=== PATIENT | male | born 1985 | race African-American/Black ===

== ENCOUNTER 2024-06-05 21:42 | Emergency (ER) | payer SELFPAY ==
[2024-06-05 21:42] VITALS: BP 161/99; PULSE 92; RESP 16; TEMP 36.1; O2SAT 99; BMI 27.6
--- NOTE | 2024-06-05 23:04 | ED.RN ---
Pt states he is tired of waiting and will come back later.
== END 2024-06-05 23:04 | disposition left against medical advice (07) ==
LOC: ED 23:18
DX: Z00.00 Encounter for general adult medical examination without abnormal findings (principal)

== ENCOUNTER 2024-06-08 13:23 | Emergency (ER) | payer MEDICAID, SELFPAY ==
[2024-06-08 13:24] VITALS: BP 147/77; PULSE 88; RESP 16; TEMP 36.4; O2SAT 100; BMI 23.4
--- NOTE | 2024-06-08 13:53 | EX.ED.GUMALE ---
HPI History of Present Illness Chief Complaint: Complaint Informant: patient Narrative Narrative: Patient presents to ED wanting STD treatment. He had a new sexual partner 4 weeks ago no protection use. He states last time he had intercourse was 17 months prior to that. Reported 3 weeks ago he felt some sort of urine sensation however would not give me more information. He denies dysuria currently no discharge. No ulcerations. He had gonorrhea at the age of 12. Reporting he gets checked every 6 months. After evaluation and further discussion with the patient, he was treated at another outside facility a month ago he states he could not move for day. He states 1 was a shot and pills that were given. He was not given a prescription. PFSH PFSH Medical History no medical history Home Medications ?Medication ?Instructions ?Recorded ?Last Taken ?Type doxycycline monohydrate 100 mg 100 mg PO BID #14 CAPSULES 06/08/24 Unknown Rx capsule Allergy/AdvReac Type Severity Reaction Status Date / Time No Known Allergies Allergy Verified 06/05/24 21:42 Family History no significant family his Surgical History no surgical history Social History Smoking Status: Never smoker ROS ROS ED Constitutional Constitutional ED: Denies chills, fever(s) or sweats Eyes Eyes: Denies change in vision ENT ENT ED: Denies dysphagia or sore throat Cardiovascular Cardiovascular: Denies chest pain, leg edema, palpitations or racing heartbeat Respiratory/Chest Respiratory/Chest: Denies cough, dyspnea or dyspnea on exertion Gastrointestinal Gastrointestinal: Denies abdominal pain, diarrhea, nausea or vomiting Genitourinary Genitourinary ED: Reports other Details: STD concerns ; Denies dysuria, hematuria or urinary frequency Musculoskeletal Musculoskeletal: Denies back pain, extremity pain or neck pain Integumentary Denies rash or wounds Neurologic Neurologic: Denies headache(s), paresthesias or weakness EXAM Physical Exam Const Vital Signs: 06/08/24 13:24 Temperature 97.6 F L Temperature Source Temporal Pulse Rate 88 Respiratory Rate 16 Blood Pressure 147/77 H Blood Pressure Mean 100 Pulse Ox 100 Oxygen Delivery Method Room Air Positive well nourished and well developed General Appearance ED: well developed and NAD HEENT Reports moist mucous membranes normocephalic and atraumatic Eyes EOMs intact bilaterally and conjunctivae normal General Eye ED: Yes normal appearance of both eyes Neck no lymphadenopathy and supple General: Negative for tenderness Chest Wall Chest: Negative for tenderness Resp normal respiratory effort and normal air movement Effort and Inspection: symmetric chest movement; Negative for respiratory distress Cardio regular rate, regular rhythm and no murmurs Peripheral Pulses: pulses 2+ throughout GI normal to inspection, nondistended, normoactive bowel sounds and non-tender Palpation: Negative for guarding or rebound tenderness present Narrative: No penile discharge no ulcerations noted. Back/Spine no CVA tenderness and no thoracic nor lumbar tenderness Extremity normal to inspection General Extremety ED: Negative for edema or tenderness General Extremity: Negative for edema Neuro oriented x3 and no sensory deficits noted Sensorium / Orientation: awake and alert Skin no rashes or lesions noted and no wounds MDM MDM MDM Narrative Medical decision making narrative: Interventions / MDM: Differential diagnosis: Urethritis, STD concerns Diagnosis considered but do not suspect: N/A My EKG interpretation: N/A Imaging independently reviewed and interpreted by myself: N/A External documents reviewed: N/A Test considered but not ordered:N/A ED course: Patient vague in his urine symptoms 3 weeks ago. He had intercourse with a new partner 4 weeks ago. Initially was not agreeable for urine testing then he agreed. Urine sent for chlamydia and gonorrhea. He brought up coverage for syphilis, there is no findings for this however discussed blood testing to send out however he declines this. He wanted treatment therefore started on Rocephin 500 mg IM, doxycycline 100 mg, Flagyl coverage of 2 g for trichomonas coverage. I discussed with him recommend treatment of doxycycline 100 mg twice a day for 7 days. He states a month ago he is not given prescription. I discussed the new recommendation guidelines with patient over the last few years currently. Additional prescription was sent to his pharmacy. Outpatient follow-up given. All his questions were answered. Of note patient was hesitant with nursing giving injections and medications. Became more agitated security was called stable, and down. He is in agreement with treatment. However he did not give urine sample for testing. He is given follow-up as an outpatient. Re-evaluation: stable Disposition discussed with patient/family/significant other: Patient Case discussed with consulting clinician: N/A This note was generated with [employer] Document Management softwareation software. It may contain incorrect words, spelling, and punctuation that were not noted in checking the note before signing. Discharge Plan Triage Chief Complaint: Complaint ED Provider: Kelton Handley Dx/Rx/DC Orders Clinical Impression: Urethritis, Concern about STD in male without diagnosis Instructions: Urethritis in Men Prescriptions: New doxycycline monohydrate 100 mg capsule 100 mg PO BID Qty: 14 0RF Primary Care Provider: Care Physician,No Primary Referrals: Megan Avila [Non-Staff] - 1-2 Weeks NOT,DEFINED [Non-Staff] - Activity Restrictions/Additional Instructions: You were treated with Rocephin 500 anti-M in the emergency permit. Flagyl 2 g. Started on doxycycline. Recommended for chlamydia coverage doxycycline for total 7 days. Follow-up with your doctors. Avoid alcohol for the next week. Print Language: Wolof Disposition Disposition: Home, Self Care Discharge Date/Time: 06/08/24 14:47
--- NOTE | 2024-06-08 14:23 | ED.RN ---
THIS RN INTO ROOM WITH RADHA RN. PT RECORDING IN THE ROOM. PT RELUCTANT TO TAKE SHOT. PT AWARE SHOT IS MEANT TO COVER ALL ASPECTS OF STDS. PT AGREES. PT THEN BEGINS TO LAUGH HYSTERICALLY AND WANDER AROUND ROOM. PT NOT ABLE TO LAY DOWN. ASSURED PT THAT IT WOULD BE QUICK. PT AGREES. PT THEN PULLS DOWN SHOTS EXPOSING PENIS TO RADHA RN PT PULLS PANTS BACK UP, BEGINS PACING AROUND ROOM STATING I'M NOT FUCKING GOING DOWN FOR 2 YEARS. THIS RN UNABLE TO UNDERSTAND PT. PT THEN BEGINS RECORDING. THIS RN OUT OF ROOM. SECURITY AT BEDSIDE. ASPHALT SPREADER OPERATOR THEN IN TO OFFER SHOT LONG PT DOES NOT RECORD. PT ANGRY WITH THIS RN REQUESTING THIS RN NAME. PT PROVIDED WITH NAME BY THIS RN. THIS RN APPROACHED PT AND TOLD HIM I HAVE NO PROBLEM GIVING YOU MY NAME, I'M NOT TRYING TO MAKE THINGS WORSE. PT GIVEN NAME. ASPHALT SPREADER OPERATOR IN WITH PT WITH SECURITY
[2024-06-08] MEDS: Ceftriaxone 500 MG Vial IM (14:26)
[2024-06-08] MEDS: metroNIDAZOLE 500 MG Tablet 2000 MG PO (14:26)
[2024-06-08] MEDS: Doxycycline 100 MG CAPSULE PO (14:26)
--- NOTE | 2024-06-08 14:46 | ED.RN ---
PT REFUSES TO GIVE URINE SAMPLE. HE STATES HE WOULD LIKE TO FORGO THE TESTING AND JUST COMPLETE THE TREATMENT. PT VERBALIZES UNDERSTANDING OF D/C INSTRUCTIONS AND LEAVES THE DEPT WITHOUT ANY FURTHER DISTURBANCES.
--- NOTE | 2024-06-08 14:59 | ED.RN ---
THIS RN ENTERS ROOM AND IS ABOUT TO GIVE PT MEDICATION. THIS RN FEELS UNCOMFORTABLE BECAUSE PT RAMBLING & NOT MAKING SENSE, PT ALSO VERY CLOSE TO THIS RN AND TOLD TO SIT ON THE BED. THIS RN THEN GETS ANOTHER RN (CHRISTOPHER) TO COME TO BEDSIDE TO GIVE PT MEDICATION WITH THIS RN. AT THIS TIME, PT BEGINS TO LAUGH INAPPROPRIATELY AND GET AGITATED. PT PULLS PANTS DOWN AND ATTEMPTS TO SHOW HIS GENITALIA TO THIS RN. PT TOLD HIS BEHAVIOR IS INAPPROPRIATE AND IS NOT TOLERATED. PT BEGINS TO GET MORE AGITATED. SECURITY IS MADE AWARE AND IS AT BEDSIDE AT THIS POINT.
== END 2024-06-08 14:47 | disposition home or self-care (01) ==
LOC: ED 13:55
PROVIDERS: Emergency Provider Emergency Medicine; Visit Provider Emergency Medicine
DX: N34.2 Other urethritis (principal); Z71.1 Person with feared health complaint in whom no diagnosis is made
CPT/HCPCS: 96372; 99283

== ENCOUNTER 2024-06-20 15:19 | Emergency (ER) | payer MEDICAID, SELFPAY ==
[2024-06-20 15:22] VITALS: BP 147/79; PULSE 83; RESP 18; TEMP 36; O2SAT 99; BMI 24.4
--- NOTE | 2024-06-20 15:23 | ED.RN ---
pt states he has a high tolerance for pain and therefore cannot use pain scale.
--- NOTE | 2024-06-20 16:34 | NURSING ---
NO OLD EKGS
--- NOTE | 2024-06-20 16:42 | ED.RN ---
This RN walked in to the patient room to assess him. This RN asked if he could remove his shirt so I can place a heart monitor on him. The patient stated They aren't going to figure out what is wrong with my chest or my eyes today baby, I am going to go. This RN stated We want to figure out what is wrong with you. I don't want you to leave without being seen.. you are in a room now. Patient shook his head and then left the department.
== END 2024-06-20 16:45 | disposition left against medical advice (07) ==
LOC: ED 16:46
DX: R07.89 Other chest pain (principal)

== ENCOUNTER 2024-06-22 14:09 | Emergency (ER) | payer MEDICAID, SELFPAY ==
[2024-06-22 14:11] VITALS: BP 154/85; PULSE 75; RESP 16; TEMP 35.9; O2SAT 97; BMI 24.6
--- NOTE | 2024-06-22 14:28 | ED.RN ---
THIS RN ENTERS THE ROOM AND PT IS AGITATED WITH DIRECTIONS OF TAKING A SEAT AND GETTING THE GOWN ON. HE HAS C/O CHEST PAIN WELL MANY OTHER THINGS. HE SAID LAST TIME HE WAS HERE NO TESTING WAS DONE SO THEY CAN'T TREAT WHAT THEY DON'T KNOW, BABY. AFTER PT RAMBLED DIFFERENT STATEMENTS WHILE STANDING OVER THE BED, I WAS BALE TO GET SOME CHARTING INFORMATION DONE AND HAD PT GIVE A URINE SAMPLE. PT IS NOT COOPERATIVE AND DOES NOT MAKE MUCH SENSE HE RAMBLES.
--- NOTE | 2024-06-22 15:23 | EKG12_ITS ---
Test Reason : GENERAL Blood Pressure : / mmHG Vent. Rate : 062 BPM Atrial Rate : 062 BPM P-R Int : 132 ms QRS Dur : 098 ms QT Int : 374 ms P-R-T Axes : 056 046 023 degrees QTc Int : 379 ms Normal sinus rhythm Minimal voltage criteria for LVH, may be normal variant ( Sokolow-Horn ) Borderline ECG Confirmed by PAUL SIMS, ERNESTO ([id number]), editor in chief DM JOSUE ([id number]) on 06/23/2024 2:49:27 PM Referred By: Confirmed By:ERNESTO MILLER MD
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
[2024-06-22 16:05] LABS: Amphetamine Urine VISTA NEGATIVE (<1000 ng/mL); Barbiturate Urine VISTA NEGATIVE (< 200 ng/mL); Benzodiazepine Urine VISTA NEGATIVE (< 200 ng/mL); Cocaine Urine VISTA NEGATIVE (< 300 ng/mL); Ecstacy Urine VISTA NEGATIVE (< 500 ng/mL); Methadone Urine VISTA NEGATIVE (< 300 ng/mL); PCP Urine VISTA NEGATIVE (< 25 ng/mL); THC Urine VISTA NEGATIVE (< 50 ng/mL); Vista UDS pH Range 6
[2024-06-22 16:05] LABS: Absolute Neutrophil Count 2.4 X10^3/uL (2.0-7.7); Basophil# 0.05 X10^3/uL; Basophil% 0.9 % (0-1); Eosinophil# 0.12 X10^3/uL; Eosinophils% 2.2 % (0-5); Hematocrit 43.3 % (40-54); Hemoglobin 13.8 g/dL (13.0-16.5); Lymphocyte % 43.7 % (19-41); Mean Corp Hgb Conc 31.9 g/dL (32-36); Mean Corpuscular Hgb 28.6 pg (27.0-32.0); Mean Corpuscular Volume 89.8 fL (80-94); Mean Platelet Vol. 10.8 fl (6.2-12.0); Monocyte# 0.54 X10^3/uL; Monocyte% 9.8 % (0-10); NRBC Flagged by Analyzer 0 % (0-5); Neutrophil # 2.35 X10^3/uL (2.7-7.7); Neutrophil % 42.9 % (47-70); Platelet Count 214 K/mm3 (150-450); RBC Distribution Width CV 12.9 % (11.6-14.6); RBC Distribution Width SD 42.5 fl (35.1-43.9); Red Blood Count 4.82 M/mm3 (4.6-6.2); White Blood Count 5.5 K/mm3 (4.4-11.0)
[2024-06-22 16:10] VITALS: BP 121/74; PULSE 65; RESP 20; O2SAT 97
[2024-06-22 16:25] LABS: AST(SGOT) 23 U/L (15-37); Alanine Aminotransfer ALT/SGPT 34 U/L (16-61); Albumin, Serum 3.5 g/dL (3.2-5.0); Alkaline Phosphatase 88 U/L (45-117); Anion Gap 4 (5-15); BUN 16 mg/dL (7-18); BUN/Creat Ratio 14.8 RATIO (10-20); Bilirubin, Direct 0.06 mg/dL (0.00-0.30); Calcium,Total 9.2 mg/dL (8.5-10.1); Chloride 107 mmol/L (98-107); Creatinine, Serum 1.08 mg/dL (0.70-1.30); EST Glomerular Filtration Rate 80 mL/min (>60); Est Glom Filt Rate - Afr Amer 97 mL/min (>60); Estimated Creatinine Clearance 90.92 ml/min; Globulin 3.3 g/dL (2.2-4.2); Glucose 110 mg/dL (74-106); Lipase 22 U/L (13-75); Potassium 4.4 mmol/L (3.5-5.1); Protein, Total 6.8 g/dL (6.4-8.2); Sodium Level 140 mmol/L (136-145); Troponin-I HS 18 pg/mL (3.0-78.0)
[2024-06-22 16:50] LABS: HIV - WCH Non-Reactive (Nonreactive); Syphilis Antibodies Non-reactive
--- NOTE | 2024-06-22 17:43 | RAD_ITS ---
INDICATION: CHEST PAIN EXAMINATION/TECHNIQUE: X-RAY - XR Chest 1 View COMPARISON: None. FINDINGS: The lungs are clear. The cardiomediastinal silhouette is unremarkable. No pleural effusion or pneumothorax. No acute osseous abnormalities. RAD/Chest 1 View (Portable) IMPRESSION: No acute radiographic abnormalities. Electronically Signed: Leroy Martínez MD at 18:40 EDT ,
--- NOTE | 2024-06-22 18:15 | CM.ED ---
Social Work Date of referral: 06/22/24 Reason for referral: Possible resources needed Referred by: ED Doctor line up worker met with patient who consented to visit. Patient was dressed and getting ready to be discharged. Patient reported that he's been worried because of how his eyes have changed. Patient pulled up various before and after pictures of his eyes and stated his eyes aren't supposed to be yellow and bloodshot. Patient reported his eyes changed roughly 7 months ago. Patient reported he is currently connected to an eye doctor who told him that patient appears to have a bacterial infection. Patient reported he was prescribed medicated eye drops however stopped due to being able to taste the medication in his throat. Patient confirmed he has a scheduled follow up appointment. Patient reported he's been trying to get medical conditions ruled out. line up worker encouraged patient to keep his eye doctor appointment. Patient denied having any other needs or concerns or needed resources at this time. line up worker also encouraged patient to follow up with his PCP. Mayra Lin, HEEL SEWER, FINISHED METAL REPAIRER
[2024-06-22 18:41] VITALS: BP 122/84; PULSE 53; RESP 16; TEMP 36.5; O2SAT 99
== END 2024-06-22 18:45 | disposition home or self-care (01) ==
PROVIDERS: Emergency Provider Emergency Medicine; Visit Provider Emergency Medicine
DX: R07.9 Chest pain, unspecified (principal); H57.89 Other specified disorders of eye and adnexa
CPT/HCPCS: 71045; 80048; 80076; 80307; 83690; 84484; 85025; 86703; 86780; 87491; 87591; 93005; 99284; A4216